=== PATIENT | female | born 1960 | race Caucasian/White ===

== ENCOUNTER 2017-04-08 16:12 | Inpatient (IN) | payer MEDICAID, OTHER ==
[~2017-04-08] VITALS: Ht 157.5 cm; Wt 74.1 kg
[~2017-04-08 16:12] MED LIST: BUSP10 PO; BUSP30TA PO; CLON1 PO; DULO60 PO; FLUO20TA20 PO; FLUO60TA PO; PROZ20CA11 PO; QUET100 PO; QUET200 PO; SERO100T PO
[2017-04-08 16:15] VITALS: BP 133/82; PULSE 96; RESP 24; TEMP 97.9; O2SAT 96
[2017-04-08 17:35] LABS: AUTOMATED NEUTROPHIL # 5.1 TH/MM3 (1.8-7.7); BASOPHIL % 0.4 % (0.0-2.0); EOSINOPHIL # 0.2 TH/MM3 (0-0.4); HEMATOCRIT 46.1 % (35.0-46.0); HEMO FLAGS DIFF FINAL; LYMPH % 29.8 % (9.0-44.0); LYMPHOCYTE # 2.6 TH/MM3 (1.0-4.8); MEAN CELL VOLUME 91.7 FL (80.0-100.0); MEAN CORPUSCULAR HEMOGLOBIN 30.6 PG (27.0-34.0); MEAN CORPUSCULAR HGB CONC 33.3 % (32.0-36.0); MONO % 8.9 % (0.0-8.0); NEUT % 58.9 % (16.0-70.0); PLATELET COUNT 213 TH/MM3 (150-450); RED BLOOD COUNT 5.02 MIL/MM3 (4.00-5.30); RED CELL DISTRIBUTION WIDTH 12.7 % (11.6-17.2); WHITE BLOOD COUNT 8.6 TH/MM3 (4.0-11.0)
[2017-04-08 17:56] LABS: ANION GAP 9 MEQ/L (5-15)
[2017-04-08 18:12] LABS: ALKALINE PHOSPHATASE 69 U/L (45-117); ALT (GPT) 82 U/L (10-53); AST (GOT) 44 U/L (15-37); BICARBONATE 27.4 MEQ/L (21.0-32.0); BLOOD UREA NITROGEN 14 MG/DL (7-18); CHLORIDE 104 MEQ/L (98-107); GLOMERULAR FILTRATION RATE 58 ML/MIN (>89); POTASSIUM 3.5 MEQ/L (3.5-5.1); SODIUM (NA) 140 MEQ/L (136-145); TOTAL BILIRUBIN ADULT 0.7 MG/DL (0.2-1.0)
[2017-04-08 18:13] LABS: ACETAMINOPHEN LESS THAN 2.0 MCG/ML (10.0-30.0)
--- NOTE | 2017-04-08 20:04 | PD ---
HPI Chief Complaint: Psychiatric Symptoms Time Seen by Provider: 20:02 Travel History International Travel<30 days: No Contact w/Intl Traveler<30days: No Traveled to known affect area: No History of Present Illness HPI Patient is a 56 year old female, homeless presents to the ER with depression and SI with very vague planning. Patient states she is "just depressed" She also states that shes "at the end of her rope". Patient when asked states that she would inject some drugs into herself to kill herself. She is very vague on details. Denies physical complaints, denies cp,sob, abdominal pain, n/v/d. PFSH Past Medical History Blood Disorders: No Bipolar Disorder: Yes Anxiety: Yes Depression: Yes Diminished Hearing: No Endocrine: No Gastrointestinal Disorders: Yes Genitourinary: No Headaches: No (See EMR) Hepatitis: Yes (HEP A,B,AND C.) Immune Disorder: No Musculoskeletal: No Neurologic: No Psychiatric: Yes (History of Bipolar D/O and Schizoaffective D/O) Reproductive: No Respiratory: No Immunizations Current: No Schizophrenia: Yes Menopausal: Yes Tubal Ligation: Yes Past Surgical History AICD: No Arteriovenous Shunt: No Hysterectomy: Yes Insulin Pump: No Joint Replacement: No Pacemaker: No Social History Alcohol Use: No (unknown ) Tobacco Use: No (unknown ) Substance Use: Yes Allergies-Medications (Allergen,Severity, Reaction): Coded Allergies: Dilaudid (Verified Adverse Reaction, Unknown, 04/08/17) Reported Meds & Prescriptions Reported Meds & Active Scripts Active Reported Hydrocodone-Acetaminophen 5-325 mg Tab 1 Tab PO Q4H PRN Clonazepam 1 Mg Tab 1 Mg PO BID Seroquel (Quetiapine Fumarate) 400 Mg Tab 400 Mg PO HS Prozac (Fluoxetine HCl) 10 Mg Cap 10 Mg PO DAILY Review of Systems Except as stated in HPI: all other systems reviewed are Neg Physical Exam Narrative GENERAL: wd/wn in nad. Unkempt. SKIN: Warm and dry. HEAD: Atraumatic. Normocephalic. EYES: Pupils equal and round. No scleral icterus. No injection or drainage. ENT: No nasal bleeding or discharge. Mucous membranes pink and moist. NECK: Trachea midline. No JVD. CARDIOVASCULAR: Regular rate and rhythm. RESPIRATORY: No accessory muscle use. Clear to auscultation. Breath sounds equal bilaterally. GASTROINTESTINAL: Abdomen soft, non-tender, nondistended. Hepatic and splenic margins not palpable. MUSCULOSKELETAL: Extremities without clubbing, cyanosis, or edema. No obvious deformities. NEUROLOGICAL: Awake and alert. No obvious cranial nerve deficits. Motor grossly within normal limits. Five out of 5 muscle strength in the arms and legs. Normal speech. PSYCHIATRIC: Appropriate mood and affect; insight and judgement normal. Patient endorses SI, denies HI, denies AVH. Data Data Last Documented VS Vital Signs Date Time Temp Pulse Resp B/P Pulse Ox O2 Delivery O2 Flow Rate FiO2 04/08/17 20:11 92 16 138/84 97 Room Air 04/08/17 16:15 97.9 Orders Complete Blood Count With Diff (04/08/17 16:34) Comprehensive Metabolic Panel (04/08/17 16:34) Urinalysis - C+S If Indicated (04/08/17 16:34) Psych Screen (04/08/17 16:34) Drug Screen, Random Urine (04/08/17 16:34) Alcohol (Ethanol) (04/08/17 16:34) Salicylates (Aspirin) (04/08/17 16:34) Tylenol (Acetaminophen) (04/08/17 16:34) Labs Laboratory Tests Test 04/08/17 17:17 White Blood Count 8.6 TH/MM3 Red Blood Count 5.02 MIL/MM3 Hemoglobin 15.3 GM/DL Hematocrit 46.1 % Mean Corpuscular Volume 91.7 FL Mean Corpuscular Hemoglobin 30.6 PG Mean Corpuscular Hemoglobin 33.3 % Concent Red Cell Distribution Width 12.7 % Platelet Count 213 TH/MM3 Mean Platelet Volume 9.5 FL Neutrophils (%) (Auto) 58.9 % Lymphocytes (%) (Auto) 29.8 % Monocytes (%) (Auto) 8.9 % Eosinophils (%) (Auto) 2.0 % Basophils (%) (Auto) 0.4 % Neutrophils # (Auto) 5.1 TH/MM3 Lymphocytes # (Auto) 2.6 TH/MM3 Monocytes # (Auto) 0.8 TH/MM3 Eosinophils # (Auto) 0.2 TH/MM3 Basophils # (Auto) 0.0 TH/MM3 CBC Comment DIFF FINAL Differential Comment Sodium Level 140 MEQ/L Potassium Level 3.5 MEQ/L Chloride Level 104 MEQ/L Carbon Dioxide Level 27.4 MEQ/L Anion Gap 9 MEQ/L Blood Urea Nitrogen 14 MG/DL Creatinine 0.99 MG/DL Estimat Glomerular Filtration 58 ML/MIN Rate Random Glucose 94 MG/DL Calcium Level 9.4 MG/DL Total Bilirubin 0.7 MG/DL Aspartate Amino Transf 44 U/L (AST/SGOT) Alanine Aminotransferase 82 U/L (ALT/SGPT) Alkaline Phosphatase 69 U/L Total Protein 8.4 GM/DL Albumin 4.3 GM/DL Salicylates Level 2.5 MG/DL Acetaminophen Level LESS THAN 2.0 MCG/ML Ethyl Alcohol Level 49 MG/DL MDM Medical Decision Making Medical Screen Exam Complete: Yes Emergency Medical Condition: Yes Differential Diagnosis suicidal ideation, poor social circumstance, depression. Narrative Course Patient is a 56-year-old homeless female presents emergency department of her own volition for evaluation of suicidal ideation. Patient is very vague plan states she would probably inject herself with some kind of drug however she does not have any direct access to any drugs. She will be left in the emergency department under voluntary status until such time she can see psychiatrist in the morning. She has no medical complaints at this time, only history is hepatitis C. She is medically cleared for psychiatric evaluation and disposition. Diagnosis Primary Impression: Suicidal ideation Condition: Stable Howard Nair MD Apr 08, 2017 20:04
[2017-04-08 20:11] VITALS: BP 138/84; PULSE 92; RESP 16; O2SAT 97
[2017-04-08] MEDS ORDERED: FLUO-1 PO (20:13)
[2017-04-08] MEDS ORDERED: HYDR-3516 PO (20:13)
[2017-04-08] MEDS ORDERED: CLON1TAB PO (20:13)
[2017-04-08] MEDS ORDERED: SERO400T PO (20:13)
[2017-04-09 07:05] VITALS: BP 103/57; PULSE 66; RESP 18; O2SAT 99
[2017-04-09 12:06] LABS: BACTERIA, URINE RARE /hpf; BLOOD, URINE NEG (NEG); GLUCOSE,URINE NEG (NEG); GRANULAR CAST, URINE 3 /lpf; KETONE, URINE NEG (NEG); MUCUS URINE FEW /lpf (OCC); NITRITE,URINE NEG (NEG); PH, URINE 5.5 (5.0-8.5); SQUAMOUS EPITHELIAL CELL URINE 3 /hpf (0-5); URINE COLOR YELLOW (YELLW/STRAW)
[2017-04-09 12:09] LABS: COMMENT (UR) CULTURE INDICATED; CULTURE IF INDICATED CULTURE INDICATED
[2017-04-09 12:11] LABS: AMPHETAMINE, URINE POS (NEG); BARBITURATES, URINE NEG (NEG); COCAINE, URINE POS (NEG)
[2017-04-09 13:10] VITALS: BP 146/77; PULSE 76; RESP 18; O2SAT 96
[2017-04-09] MEDS ORDERED: ACETAMINOPHEN 325 MG TAB PO PRN (15:15)
[2017-04-09] MEDS ORDERED: ALUMINUM/MAGNESIUM/SIMETH 30 ML CUP PO PRN (15:15)
[2017-04-09] MEDS ORDERED: MAGNESIUM HYDROXIDE SUSP 30 ML CUP PO PRN (15:15)
[2017-04-09] MEDS ORDERED: diphenhydrAMINE HCL 50 MG/ML VIAL - HS PRN IM (15:15)
[2017-04-09] MEDS ORDERED: QUEtiapine FUMARATE 200 MG TAB PO SCH (21:00)
[2017-04-09] MEDS: REMOVE OLD NICOTINE PATCH T-DERMAL SCH (21:00)
[2017-04-09] MEDS: clonazePAM 0.5 MG TAB PO SCH (21:25)
[2017-04-10 05:24] VITALS: BP 107/66; PULSE 57; RESP 16; TEMP 97.8; O2SAT 96
[2017-04-10] MEDS: NICOTINE 21 MG/24 HR PATCH T-DERMAL SCH ×2 (09:00→09:43)
[2017-04-10] MEDS: clonazePAM 0.5 MG TAB PO SCH (09:35)
[2017-04-10] MEDS: FLUoxetine HCL 20 MG CAP PO SCH (09:35)
[2017-04-10] MEDS ORDERED: MAGNESIUM HYDROXIDE SUSP 30 ML CUP PO PRN (12:15)
[2017-04-10] MEDS ORDERED: ACETAMINOPHEN 325 MG TAB PO PRN (12:15)
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
[2017-04-10] MEDS: IBUPROFEN 600 MG TAB PO PRN (13:07)
[2017-04-10] MEDS: QUEtiapine FUMARATE 25 MG TAB PO SCH ×2 (13:08→16:49)
--- NOTE | 2017-04-10 15:15 | PD.CONS ---
HPI Service [facility] Hospitalists Consult Requested By Psychiatric services Reason for Consult Medical management Primary Care Physician Pooja Garvin MD Diagnoses: History of Present Illness Written by Katie Conrad PA-C acting as scribe for Dr. Florez on 04/10/17 at 15 :02. This is a 56-year-old homeless female with a past medical history of hep C status post previous interferon treatment and chronic neck pain under the care of pain management who presented to the ED with complaints of depression and suicidal ideation has been admitted to the psychiatric unit. Hospitalist services consulted for management of positive urinalysis. Patient seen and examined today. Patient complains of urinary symptoms. She reports frequency, urgency and burning with urination. She denies any fever or chills. She does admit to nausea but denies any vomiting. She also reports lower abdominal pain. She is requesting STD testing due to having unprotected sex. She denies any chest pain or shortness of breath. She denies any diarrhea or constipation. Review of Systems Except as stated in HPI: all other systems reviewed are Neg Past Family Social History Allergies: Coded Allergies: Dilaudid (Verified Adverse Reaction, Unknown, 04/08/17) Past Medical History Hepatitis C status post interferon treatment with ongoing infection per patient report Chronic neck pain Past Surgical History Hysterectomy Bunionectomy Reported Medications Hydrocodone-Acetaminophen 5-325 mg Tab 1 Tab PO Q4H PRN Clonazepam 1 Mg Tab 1 Mg PO BID Seroquel (Quetiapine Fumarate) 400 Mg Tab 400 Mg PO HS Prozac (Fluoxetine HCl) 10 Mg Cap 10 Mg PO DAILY Active Ordered Medications Current Medications Medications (Trade) Dose Ordered Sig/Richard Route Start Time Stop Time Status Last Admin (PROzac) 20 mg DAILY PO 04/10/17 09:00 04/10/17 09:35 (Benadryl) 50 mg HS PRN PO 04/09/17 15:15 (Habitrol 21 Mg Patch.24 Hr) 1 patch DAILY T-DERMAL 04/10/17 09:00 Miscellaneous Information 1 HS T-DERMAL 04/09/17 21:00 (SEROquel) 500 mg HS PO 04/10/17 21:00 (SEROquel) 50 mg BID@09,16 PO 04/10/17 12:15 04/10/17 13:08 (Motrin) 600 mg Q8H PRN PO 8/4/17 12:15 04/10/17 13:07 (Tylenol) 650 mg Q4H PRN PO 04/10/17 12:15 (Milk Of Magnesia Liq) 30 ml DAILY PRN PO 04/10/17 12:15 (Mag-Al Plus Susp Liq) 30 ml Q6H PRN PO 04/10/17 12:15 Family History Mother, hypertension Mental illness Social History Patient reports a history of tobacco use of 1 pack per day since the age of 11 but states she cut down a year ago and is now smoking 1 pack every 4 days. She reports occasional alcohol consumption. She has a history of IV drug use but states she has not used IV drugs "in a while". She last used cocaine and methamphetamines a few days ago. Physical Exam Vital Signs Vital Signs Date Time Temp Pulse Resp B/P Pulse Ox O2 Delivery O2 Flow Rate FiO2 04/10/17 14:57 14 04/10/17 05:24 97.8 57 16 107/66 96 Physical Exam GENERAL: This is a well-nourished, well-developed patient, in no apparent distress. Awake and alert. SKIN: No rashes, ecchymoses or lesions. Cool and dry. HEAD: Atraumatic. Normocephalic. No temporal or scalp tenderness. EYES: Pupils equal round and reactive. Extraocular motions intact. No scleral icterus. No injection or drainage. ENT: Nose without bleeding or purulent drainage. Throat without erythema, tonsillar hypertrophy or exudate. Uvula midline. Airway patent. NECK: Trachea midline. No lymphadenopathy. Supple, nontender, no meningeal signs. CARDIOVASCULAR: Regular rate and rhythm without murmurs, gallops, or rubs. RESPIRATORY: Clear to auscultation. Breath sounds equal bilaterally. No wheezes , rales, or rhonchi. GASTROINTESTINAL: Abdomen soft, non-tender, nondistended. No hepato-splenomegaly , or palpable masses. No guarding. MUSCULOSKELETAL: Extremities without clubbing, cyanosis, or edema. No joint tenderness, effusion, or edema noted. No calf tenderness. NEUROLOGICAL: Awake and alert. Able to move all extremities. No focal neurologic findings appreciated. Normal speech. Laboratory Date/Time Procedure Status Source Growth 04/09/17 11:30 Urine Culture - Final Complete Urine Clean Catch 50-100,000 CFU/ML MIXED GRAM POSITIVE... Result Diagram: 04/08/17 1717 04/08/17 1717 Assessment and Plan Assessment and Plan 56-year-old homeless female with a past medical history of hep C status post previous interferon treatment and chronic neck pain under the care of pain management who presented to the ED with complaints of depression and suicidal ideation has been admitted to the psychiatric unit. Hospitalist services consulted for management of positive urinalysis. Depression Suicidal ideation Management per psychiatric team Hepatitis C status post interferon treatment with ongoing infection per patient report Standard precautions Recommended to patient should follow-up with GI specialist for further evaluation and treatment Advised regarding complete alcohol abstinence UTI UA positive for moderate leukocyte esterase, 8 white blood cells and rare bacteria. Patient is symptomatic Begin by mouth antibiotic therapy and follow up on final culture results Unprotected sexual intercourse As requested by the patient, will order HIV testing as well as gonorrhea and chlamydia Polysubstance abuse Ongoing tobaccoism History of IV drug use Urine drug screen positive for amphetamines, cocaine and cannabis. Ethyl alcohol 49 Discussed cessation/counseling Transaminitis Secondary to alcohol consumption Follow-up on LFTs DVT prophylaxis Patient is ambulatory Thank you kindly for this consultation. We will follow along with you. This note was transcribed by kamala Conrad PA-C. I, Dr. Laureen Florez personally performed the history, physical exam, and medical decision making; and confirmed the accuracy of the information in the transcribed note. Authenticated by Dr. Laureen Florez on 04/10/17 at 15:02. Discussed Condition With Patient and nursing staff Katie Conrad Apr 10, 2017 15:15 Laureen Florez MD Apr 10, 2017 16:25
[2017-04-10 16:21] LABS: ANION GAP 6 MEQ/L (5-15); BICARBONATE 30.7 MEQ/L (21.0-32.0); BLOOD UREA NITROGEN 12 MG/DL (7-18); CHLORIDE 104 MEQ/L (98-107); GLOMERULAR FILTRATION RATE 60 ML/MIN (>89); SODIUM (NA) 141 MEQ/L (136-145)
[2017-04-10 16:23] LABS: HDL CHOLESTEROL 42.3 MG/DL (40.0-60.0); LDL CHOLESTEROL 110 MG/DL (0-99)
[2017-04-10 16:31] LABS: HEMOGLOBIN A1b 1.6 %; HEMOGLOBIN Ao 85.9 %; HEMOGLOBIN LA1C 2.1 %; HEMOGLOBIN P3 3.6 %
[2017-04-10 17:54] VITALS: BP 94/51; PULSE 67; RESP 17; TEMP 97.4; O2SAT 95
[2017-04-10] MEDS: REMOVE OLD NICOTINE PATCH T-DERMAL SCH (21:00)
[2017-04-10] MEDS: QUEtiapine FUMARATE 200 MG TAB PO SCH (22:48)
[2017-04-10] MEDS: CIPROFLOXACIN 250 MG TAB PO SCH (22:48)
[2017-04-11 06:33] VITALS: BP 101/53; PULSE 56; RESP 16; TEMP 97.2; O2SAT 100
[2017-04-11] MEDS: FLUoxetine HCL 20 MG CAP PO SCH (08:40)
[2017-04-11] MEDS: QUEtiapine FUMARATE 25 MG TAB PO SCH ×2 (08:40→15:01)
[2017-04-11] MEDS: CIPROFLOXACIN 250 MG TAB PO SCH ×2 (08:40→20:59)
--- NOTE | 2017-04-11 10:47 | HHI.PR ---
Subjective Remarks Follow up on patient with UTI, transaminitis. Patient seen and examined today. Patient reports a yellowish vaginal discharge. She denies any burning or itching. She has not had a pap smear in a very long time. She denies any other complaints. She denies any fever or chills. No chest pain or SOB. No N/ V or abdominal pain. Objective Vitals Vital Signs Date Time Temp Pulse Resp B/P Pulse Ox O2 Delivery O2 Flow Rate FiO2 04/11/17 06:33 97.2 56 16 101/53 100 04/10/17 17:54 97.4 67 17 94/51 95 04/10/17 14:57 14 Result Diagram: 04/08/17 1717 04/10/17 1532 Objective Remarks GENERAL: This is a well-nourished, well-developed patient, in no apparent distress. Awake and alert. Lying in hospital bed. SKIN: No rashes, ecchymoses or lesions. Cool and dry. HEAD: Atraumatic. Normocephalic. EYES: Extraocular motions intact. No scleral icterus. No injection or drainage. ENT: Nose without bleeding or purulent drainage. Airway patent. NECK: Trachea midline. Supple. CARDIOVASCULAR: Regular rate and rhythm without murmurs, gallops, or rubs. RESPIRATORY: Clear to auscultation. Breath sounds equal bilaterally. No wheezes , rales, or rhonchi. GASTROINTESTINAL: Abdomen soft, non-tender, nondistended. No hepato-splenomegaly , or palpable masses. No guarding. MUSCULOSKELETAL: Extremities without clubbing, cyanosis, or edema. No joint tenderness, effusion, or edema noted. No calf tenderness. NEUROLOGICAL: Awake and alert. Able to move all extremities. No focal neurologic findings appreciated. Normal speech. Medications and IVs Current Medications Medications (Trade) Dose Ordered Sig/Richard Route Start Time Stop Time Status Last Admin (PROzac) 20 mg DAILY PO 04/10/17 09:00 04/11/17 08:40 (Benadryl) 50 mg HS PRN PO 04/09/17 15:15 Miscellaneous Information 1 HS T-DERMAL 04/09/17 21:00 (SEROquel) 500 mg HS PO 04/10/17 21:00 04/10/17 22:48 (SEROquel) 50 mg BID@09,16 PO 04/10/17 12:15 04/11/17 08:40 (Motrin) 600 mg Q8H PRN PO 04/10/17 12:15 04/10/17 13:07 (Tylenol) 650 mg Q4H PRN PO 04/10/17 12:15 (Milk Of Magnesia Liq) 30 ml DAILY PRN PO 04/10/17 12:15 (Mag-Al Plus Susp Liq) 30 ml Q6H PRN PO 04/10/17 12:15 (Cipro) 250 mg Q12HR PO 04/10/17 21:00 04/15/17 20:59 04/11/17 08:40 A/P Assessment and Plan 56-year-old homeless female with a past medical history of hep C status post previous interferon treatment and chronic neck pain under the care of pain management who presented to the ED with complaints of depression and suicidal ideation has been admitted to the psychiatric unit. Hospitalist services consulted for management of positive urinalysis. Depression Suicidal ideation Management per psychiatric team Hepatitis C status post interferon treatment with ongoing infection per patient report Standard precautions Recommended to patient should follow-up with GI specialist for further evaluation and treatment Advised regarding complete alcohol abstinence UTI UA positive for moderate leukocyte esterase, 8 white blood cells and rare bacteria. Patient is symptomatic UCX showing 50 - 100,000 mixed gram + nahomy, probable contaminant. Will continue to treat since patient symptomatic. Continue Cipro 250mg BID Unprotected sexual intercourse As requested by the patient, will order HIV testing as well as gonorrhea and chlamydia Recommended patient follow up with processing operator as outpatient for pap smear Case management consulted to assist with appt Polysubstance abuse Ongoing tobaccoism History of IV drug use Urine drug screen positive for amphetamines, cocaine and cannabis. Ethyl alcohol 49 Discussed cessation/counseling Transaminitis Secondary to alcohol consumption Follow-up on LFTs DVT prophylaxis Patient is ambulatory Discussed with patient and Katie Ch Apr 11, 2017 10:47
[2017-04-11 12:46] LABS: ALKALINE PHOSPHATASE 61 U/L (45-117); ALT (GPT) 63 U/L (10-53); AST (GOT) 33 U/L (15-37); TOTAL BILIRUBIN ADULT 0.1 MG/DL (0.2-1.0)
--- NOTE | 2017-04-11 15:40 | HHI.PYPN ---
Subjective Remarks Patient was seen and case discussed with nursing. Patient minimizes her polysubstance abuse and thinks she should be in a state hospital. Homelessness is a concern. Mood is irritable. She denies suicidal ideation intent or plan. Compliant with medications Objective Alert: Yes [place]: Person, Place, Date, Situation Mood: Oppositional Affect: Other (irritable) Memory Intact: Immediate (grossly intact) Hallucinations: Auditory (denies) Delusions: No Delusion Type: Other (none elicited) Suicidal: Ideation (denies) Homicidal: Ideation (denies) Insight/Judgment Poor Labs Test 04/11/17 11:42 Total Bilirubin 0.1 MG/DL Direct Bilirubin LESS THAN 0.1 MG/DL Indirect Bilirubin 0.0 MG/DL Aspartate Amino Transf 33 U/L (AST/SGOT) Alanine Aminotransferase 63 U/L (ALT/SGPT) Alkaline Phosphatase 61 U/L Total Protein 7.4 GM/DL Albumin 3.3 GM/DL Date/Time Procedure Status Source Growth 04/09/17 11:30 Urine Culture - Final Complete Urine Clean Catch 50-100,000 CFU/ML MIXED GRAM POSITIVE... Vitals/IOs Vital Signs Date Time Temp Pulse Resp B/P Pulse Ox O2 Delivery O2 Flow Rate FiO2 04/11/17 06:33 97.2 56 16 101/53 100 04/09/17 13:10 Room Air Assessment & Plan Problem List: (1) PTSD (post-traumatic stress disorder) ICD Code: F43.10 (2) Major depressive disorder, recurrent, severe with psychotic features ICD Code: F33.3 (3) Cocaine abuse ICD Code: F14.10 (4) Marijuana abuse ICD Code: F12.10 (5) Amphetamine abuse ICD Code: F15.10 (6) Alcohol abuse ICD Code: F10.10 Assessment & Plan Continue current treatment plan Justification for Cont. Inpt. Patient would decompensate in a less restrictive setting Request HC Surrog/Guard Advoc?: No Damián Salazar DO Apr 11, 2017 15:40
[2017-04-11 17:00] VITALS: BP 113/71; PULSE 71; RESP 18; TEMP 96; O2SAT 98
[2017-04-11] MEDS: REMOVE OLD NICOTINE PATCH T-DERMAL SCH (21:00)
[2017-04-11] MEDS: QUEtiapine FUMARATE 200 MG TAB PO SCH (21:00)
[2017-04-12 04:51] VITALS: BP 91/62; PULSE 71; RESP 16; TEMP 97.5; O2SAT 97
[2017-04-12] MEDS: FLUoxetine HCL 20 MG CAP PO SCH (08:42)
[2017-04-12] MEDS: QUEtiapine FUMARATE 25 MG TAB PO SCH ×2 (08:42→17:19)
[2017-04-12] MEDS: CIPROFLOXACIN 250 MG TAB PO SCH ×2 (08:42→20:31)
--- NOTE | 2017-04-12 12:07 | HHI.PYPN ---
Subjective Remarks Patient was seen and case discussed with nursing. There is a high suspicion that patient is exaggerating her symptoms today. Yesterday she says she [facility] to go [facility] because she is homeless. Today she says she sees yellow lines her water and cobwebs in the corners and called and the nurse earlier today just to tell her that. She answers yes to every question about psychosis. Minimizes her history of drug use. Denies suicidal ideation intent or plan Objective Alert: Yes [place]: Person, Place, Date, Situation Mood: Oppositional Affect: Other (irritable) Memory Intact: Immediate (grossly intact) Hallucinations: Auditory ("things"), Visual (cobwebs) Delusions: No Delusion Type: Other (claims to be paranoid) Suicidal: Ideation (denies) Homicidal: Ideation (denies) Insight/Judgment Poor Labs Date/Time Procedure Status Source Growth 04/09/17 11:30 Urine Culture - Final Complete Urine Clean Catch 50-100,000 CFU/ML MIXED GRAM POSITIVE... Vitals/IOs Vital Signs Date Time Temp Pulse Resp B/P Pulse Ox O2 Delivery O2 Flow Rate FiO2 04/12/17 04:51 97.5 71 16 91/62 97 04/09/17 13:10 Room Air Assessment & Plan Problem List: (1) PTSD (post-traumatic stress disorder) ICD Code: F43.10 (2) Major depressive disorder, recurrent, severe with psychotic features ICD Code: F33.3 (3) Cocaine abuse ICD Code: F14.10 (4) Marijuana abuse ICD Code: F12.10 (5) Amphetamine abuse ICD Code: F15.10 (6) Alcohol abuse ICD Code: F10.10 Assessment & Plan Continue current treatment plan Justification for Cont. Inpt. Patient would decompensate in a less restrictive setting Request HC Surrog/Guard Advoc?: No Damián Salazar DO Apr 12, 2017 12:07
[2017-04-12 16:51] VITALS: BP 116/63; PULSE 70; RESP 18; TEMP 97.3
[2017-04-12] MEDS: IBUPROFEN 600 MG TAB PO PRN (20:32)
[2017-04-12] MEDS: diphenhydrAMINE HCL 50 MG CAP - HS PRN PO (20:32)
[2017-04-12] MEDS: REMOVE OLD NICOTINE PATCH T-DERMAL SCH (20:32)
[2017-04-12] MEDS: QUEtiapine FUMARATE 200 MG TAB PO SCH (20:32)
[2017-04-13 05:36] VITALS: BP 98/55; PULSE 68; RESP 16; TEMP 97.9; O2SAT 96
[2017-04-13] MEDS: CIPROFLOXACIN 250 MG TAB PO SCH ×2 (08:19→20:15)
[2017-04-13] MEDS: QUEtiapine FUMARATE 25 MG TAB PO SCH ×2 (08:19→15:11)
[2017-04-13] MEDS: FLUoxetine HCL 20 MG CAP PO SCH (08:19)
--- NOTE | 2017-04-13 12:31 | PD.TTN ---
Present for Treatment Team Treatment Team Staff: Provider (Dr. Atkinson), Nurse (Akshat Bowling RN), Psych Therapist (Fatoumata), Occupational Therapist (Svetlana Richardson, [employer]) Patient Problems 1. Discharge planning 2. Medication compliance 3. Knowledge deficit 4. Lack of coping skills Progress Toward Goals Provider Input: Patient was observed to have been hiding medication during on incident but has been advised to continue to medication compliant. Patient has had minor incidents on the unit but overall not having any side effects from medications. Patient is claiming to have some visual hallucinations but seems somewhat superficial. Nurse Input: Patient is cooperative and calm and denies any current SI/HI. Patient was being noncompliant with medications and had to have a room search to make sure patient took medications. patient was noting to have visual hallucinations but has since subsided. Psych Therapist Input: Patient seems to be cooperative and calm but has some fears about being discharge due to her current living situation. patient does not seem to have reliable housing. Occupational Therapist Input: Patient attends group activities and is pleasant and coopeartive. Fatoumata Mcarthur [facility] Apr 13, 2017 12:31
[2017-04-13] MEDS: ALUMINUM/MAGNESIUM/SIMETH 30 ML CUP PO PRN (13:02)
[2017-04-13] MEDS: IBUPROFEN 600 MG TAB PO PRN (13:02)
--- NOTE | 2017-04-13 15:22 | HHI.PYPN ---
Subjective Remarks Patient seen in her room with nurse Akshat, medical students Corazon and Diane. Patient now stating she has had some intermittent visual hallucinations of spiders and shapes. They come and go. I question if there some manipulation related to the statements. Or perhaps still some residual from the urine toxicology results. In any event she does denies suicidality homicidality voices at this time. We discussed placement issues she says she maybe was state with her family though she doesn't know the phone number at this time. However do feel she is reaching a maximum benefit of this hospitalization will consider discharge tomorrow Review of Systems Except as stated in HPI: all other systems reviewed are Neg Objective Alert: Yes [place]: Person, Place, Date, Situation Mood: Oppositional Affect: Other (irritable) Memory Intact: Immediate (grossly intact) Hallucinations: Auditory (now denies), Visual (has had vague spider and various shapes that are intermittent and faint) Delusions: No Delusion Type: Other Suicidal: Ideation (denies) Homicidal: Ideation (denies) Insight/Judgment Poor Labs Date/Time Procedure Status Source Growth 04/09/17 11:30 Urine Culture - Final Complete Urine Clean Catch 50-100,000 CFU/ML MIXED GRAM POSITIVE... Vitals/IOs Vital Signs Date Time Temp Pulse Resp B/P Pulse Ox O2 Delivery O2 Flow Rate FiO2 04/13/17 05:36 97.9 68 16 98/55 96 04/09/17 13:10 Room Air Assessment & Plan Problem List: (1) PTSD (post-traumatic stress disorder) ICD Code: F43.10 (2) Major depressive disorder, recurrent, severe with psychotic features ICD Code: F33.3 (3) Cocaine abuse ICD Code: F14.10 (4) Marijuana abuse ICD Code: F12.10 (5) Amphetamine abuse ICD Code: F15.10 (6) Alcohol abuse ICD Code: F10.10 Assessment & Plan Estimated LOS: days patient improving now denies suicidality homicidality. Denies voices. Make statements about vague visual abnormalities that might be somewhat of manipulation in nature Justification for Cont. Inpt. Will consider discharge tomorrow Discharge Planning To be determined Request HC Surrog/Guard Advoc?: No Cruz Atkinson MD Apr 13, 2017 15:22
[2017-04-13 15:33] VITALS: BP 141/64; PULSE 62; RESP 18; TEMP 97.5; O2SAT 97
[2017-04-13] MEDS: QUEtiapine FUMARATE 200 MG TAB PO SCH (20:16)
[2017-04-13] MEDS: REMOVE OLD NICOTINE PATCH T-DERMAL SCH (20:16)
[2017-04-14 06:16] VITALS: BP 110/64; PULSE 78; RESP 16; TEMP 97.6; O2SAT 96
[2017-04-14] MEDS: FLUoxetine HCL 20 MG CAP PO SCH (09:15)
[2017-04-14] MEDS: QUEtiapine FUMARATE 25 MG TAB PO SCH (09:15)
[2017-04-14] MEDS: CIPROFLOXACIN 250 MG TAB PO SCH (09:15)
[2017-04-14] MEDS: ALUMINUM/MAGNESIUM/SIMETH 30 ML CUP PO PRN (10:26)
[2017-04-14] MEDS: diphenhydrAMINE HCL 50 MG CAP - HS PRN PO (10:26)
[2017-04-14] MEDS: IBUPROFEN 600 MG TAB PO PRN (10:27)
[2017-04-14] MEDS ORDERED: QUET1TAB7 PO (12:49)
[2017-04-14] MEDS ORDERED: CIPR250T52 PO (12:49)
[2017-04-14] MEDS ORDERED: SERO400T PO (12:49)
[2017-04-14] MEDS ORDERED: FLUO20CA12 PO (12:49)
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
== END 2017-04-14 15:25 | disposition home or self-care (01) | DRG 885 ==
LOC: NEPD 16:12 → NEDA 04-09 15:00 → H260 04-09 15:32
PROVIDERS: ADMIT Psychiatry & Neurology Psychiatry; ATTEND Psychiatry & Neurology Psychiatry
DX: F33.3 Major depressive disorder, recurrent, severe with psychotic symptoms (principal); R45.851 Suicidal ideations; N39.0 Urinary tract infection, site not specified; F14.10 Cocaine abuse, uncomplicated; F15.10 Other stimulant abuse, uncomplicated; F43.10 Post-traumatic stress disorder, unspecified; F12.10 Cannabis abuse, uncomplicated; F10.10 Alcohol abuse, uncomplicated; G47.00 Insomnia, unspecified; Z59.0 Homelessness; B19.20 Unspecified viral hepatitis C without hepatic coma; M54.2 Cervicalgia; G89.29 Other chronic pain; F17.210 Nicotine dependence, cigarettes, uncomplicated; N89.8 Other specified noninflammatory disorders of vagina
CPT/HCPCS: 80048; 80053; 80061; 80076; 80307; 81001; 83036; 85025; 86703; 87086; Q0163